=== PATIENT | male | born 2000 | race Hispanic/Latino ===

== ENCOUNTER 2023-02-23 18:40 | Emergency (ER) | payer SELFPAY ==
[2023-02-23] VITALS (14 sets, daily range): BP systolic 120–175; BP diastolic 57–87; PULSE 71–91; RESP 16–18; TEMP 36.3–36.6; O2SAT 98–100; BMI 56.7
[2023-02-23 20:14] LABS: Add Manual Diff / Slide Review NO; Basophils Absolute Auto 100 /uL (0-100); Basophils Percent Auto 0.8 % (0-2); Eosinophils Absolute Auto 100 /uL (0-450); Eosinophils Percent Auto 0.6 % (2-4); Hematocrit 41.8 % (41-53); Hemoglobin 14.1 g/dL (13.5-17.5); Lymphocytes Absolute Auto 2900 /uL (1100-4500); Mean Corpuscular HGB Conc 33.8 % (30-36); Mean Corpuscular Hemoglobin 26.7 PG (26-34); Monocytes Absolute Auto 700 /uL (0-900); Monocytes Percent Auto 5.7 % (3-14); Neutrophils Absolute Auto 8400 /uL (1500-7000); Neutrophils Percent Auto 68.9 % (50-75); Platelet Count 236 X10^3/uL (150-400); Red Blood Cell Count 5.28 X10^6/uL (4.5-5.9); Red Cell Distribution Width 13.8 % (11.6-14.8); White Blood Cell Count 12.2 X10^3/uL (4.5-11.0)
[2023-02-23 20:27] LABS: Alanine Aminotransferase 45 IU/L (<50); Albumin 4.3 g/dL (3.5-5.0); Albumin Globulin Ratio 1.2 (1.0-2.8); Alkaline Phosphatase 99 U/L (38-126); Aspartate Aminotransferase 36 IU/L (17-59); BUN Creatinine Ratio 23.3 (6-22); Bilirubin Total 0.7 mg/dL (0.2-1.3); Blood Urea Nitrogen 14 mg/dL (9-20); Calcium 8.8 mg/dL (8.4-10.2); Carbon Dioxide 29 mmol/L (22-32); Chloride 102 mmol/L (98-107); Estimated Glomerular Filt Rate > 60 mL/min (>60); Globulin 3.5 g/dL (1.7-4.1); Glucose 93 mg/dL (70-100); HEMOLYSIS 18 (0-50); Lipase 42 U/L (23-300); Potassium 3.6 mmol/L (3.4-5.1); Sodium 141 mmol/L (137-145); Total Protein 7.8 g/dL (6.3-8.2)
[2023-02-23] MEDS: SODIUM CHLORIDE 0.9% 1,000 ML 1000 ML IV (21:43)
--- NOTE | 2023-02-23 22:01 | ED.GENADULT ---
HPI - General Adult General Chief complaint: Dizziness Stated complaint: weakness/dizzy Time Seen by Provider: 02/23/23 18:49 Source: patient Mode of arrival: Ambulatory History of Present Illness HPI narrative: 22-year-old gentleman who presents complaining that he is weak and dizzy for a week. Was seen by urgent care and recommended that he come to the emergency department for further evaluation. Has been fasting in an attempt to lose weight. He currently does not have a physician. He is not reporting fevers, headaches, palpitations, chest pain. Related Data Home Medications Medication Instructions Recorded Confirmed No Known Home Medications 02/23/23 02/23/23 Allergies Allergy/AdvReac Type Severity Reaction Status Date / Time No Known Drug Allergies Allergy Verified 02/23/23 18:44 Review of Systems Review of Systems Narrative: Pertinent positive and negative findings as per HPI Patient History Medical History (Updated 02/23/23 @ 22:25 by Carole Reynolds MD) BMI greater than 30 Social History Smoking Status: Never smoker Smoking Status: Never smoker Substance Use Type: does not use Exam Initial Vital Signs Initial Vital Signs: Vital Signs Temperature 97.3 F L 02/23/23 18:44 Pulse Rate 90 02/23/23 18:44 Respiratory Rate 18 02/23/23 18:44 Blood Pressure 165/87 H 02/23/23 18:44 Pulse Oximetry 99 02/23/23 18:44 Oxygen Delivery Method Room Air 02/23/23 18:44 General: Healthy appearing, in no acute distress. BMI of 56.7. Able to give a complete and coherent history. HEENT: Moist mucous membranes, normal sclera with reactive pupils, Respiratory: Lungs are clear to auscultation, no wheezing no rales no rhonchi. Full and symmetrical air movement Cardiac: Regular rate and rhythm no murmurs no bruits Abdomen: Soft, nontender, good bowel tones, no flank pain Skin: Warm and dry, no rashes Neurologic: Grossly neurologically intact with no obvious asymmetries or abnormalities Extremities: No trauma, well perfused Psych: Cooperative, appropriate insight and affect Course Orders Ordered: ED Orders 02/23/23 19:19 EKG-12 Lead Stat 02/23/23 19:50 Complete Blood Count AUTO DIFF Stat Comprehensive Metabolic Panel Stat Lipase Stat Sodium Chloride (Normal Saline 0.9%) 1,000 mls @ 1,000 mls/hr IV BOLUS ONE Stop: 02/23/23 22:36 Last Admin: 02/23/23 21:43 Dose: 1,000 mls/hr Documented By: [facility] Ondansetron HCl (Ondansetron 4 Mg Odt) 4 mg PO NOW PRN PRN Reason: Nausea And Vomiting Ondansetron HCl (Ondansetron 4 Mg/2 Ml Inj) 4 mg IV NOW PRN PRN Reason: Nausea And Vomiting Vital Signs Vital signs: Vital Signs - 8 hr 02/23/23 18:44 02/23/23 19:40 02/23/23 19:42 Temperature 97.3 F L 97.9 F Pulse Rate 90 85 91 H Respiratory Rate 18 Blood Pressure 165/87 H 175/84 H Pulse Oximetry 99 98 99 Oxygen Delivery Method Room Air Room Air 02/23/23 19:44 02/23/23 19:44 02/23/23 20:00 Temperature Pulse Rate 86 83 Respiratory Rate Blood Pressure 154/78 H Pulse Oximetry 98 98 Oxygen Delivery Method 02/23/23 20:30 02/23/23 20:30 Temperature Pulse Rate 83 Respiratory Rate Blood Pressure 139/69 Pulse Oximetry 99 Oxygen Delivery Method Medical Decision Making Lab Data 02/23/23 19:50 02/23/23 19:50 Labs: Lab Results 02/23/23 02/23/23 Range/Units 19:50 19:50 WBC 12.2 H (4.5-11.0) X10^3/uL RBC 5.28 (4.5-5.9) X10^6/uL Hgb 14.1 (13.5-17.5) g/dL Hct 41.8 (41-53) % MCV 79.0 L (80-100) fL MCH 26.7 (26-34) PG MCHC 33.8 (30-36) % RDW 13.8 (11.6-14.8) % Plt Count 236 (150-400) X10^3/uL Neut % (Auto) 68.9 (50-75) % Lymph % (Auto) 24.0 L (25-40) % [place] % (Auto) 5.7 (3-14) % Eos % (Auto) 0.6 L (2-4) % Baso % (Auto) 0.8 (0-2) % Neut # (Auto) 8400 H (9744-1934) /uL Lymph # (Auto) 2900 (4576-0031) /uL [place] # (Auto) 700 (0-900) /uL Eos # (Auto) 100 (0-450) /uL Baso # (Auto) 100 (0-100) /uL Sodium 141 (137-145) mmol/L Potassium 3.6 (3.4-5.1) mmol/L Chloride 102 (98-107) mmol/L Carbon Dioxide 29 (22-32) mmol/L BUN 14 (9-20) mg/dL Creatinine 0.60 L (0.66-1.25) mg/dL Estimated GFR > 60 (>60) mL/min BUN/Creatinine Ratio 23.3 H (6-22) Glucose 93 (70-100) mg/dL Calcium 8.8 (8.4-10.2) mg/dL Total Bilirubin 0.7 (0.2-1.3) mg/dL AST 36 (17-59) IU/L ALT 45 (<50) IU/L Alkaline Phosphatase 99 (38-126) U/L Total Protein 7.8 (6.3-8.2) g/dL Albumin 4.3 (3.5-5.0) g/dL Globulin 3.5 (1.7-4.1) g/dL Albumin/Globulin Ratio 1.2 (1.0-2.8) Lipase 42 (23-300) U/L Urine Dip Bedside Urine Glucose Negative Bedside Urine Bilirubin - Negative Bedside Urine Ketone - Negative Urine Specific [place] 1.025 Bedside Urine Occult Blood - Negative Bedside Urine pH 6.0 Bedside Urine Protein - Negative Bedside Urine Urobilinogen - Negative Bedside Urine Nitrite - Negative Bedside Urine Leukocytes - Negative Esterase Point of care testing: Urine Dip Bedside Urine Glucose Negative Bedside Urine Bilirubin - Negative Bedside Urine Ketone - Negative Urine Specific [place] 1.025 Bedside Urine Occult Blood - Negative Bedside Urine pH 6.0 Bedside Urine Protein - Negative Bedside Urine Urobilinogen - Negative Bedside Urine Nitrite - Negative Bedside Urine Leukocytes - Negative Esterase MDM Narrative Medical decision making narrative: CC: Weak and dizzy Complicating co-morbidities: Morbid obesity with recently started voluntary fasting Data collected from: patient, Social determinants of health that may influence the patients condition: No current medical insurance Differential considered: Dehydration, sepsis, calorie malnutrition Exam documented above, pertinent findings include: Benign exam Lab Test results independently reviewed as above. Pertinent findings: CBC has a mild leukocytosis at 12.2 Metabolic panel is unremarkable with normal creatinine Hemoglobin A1c is 5.6 Independently reviewed EKG sinus rhythm at a rate of 90 with no acute ischemic changes Discussion: 22-year-old gentleman who wants to improve his overall health and has been fasting. Today was increasingly weak and dizzy. Feels significantly better after a L of fluid. Labs are reassuring. We talked about healthy choices for weight loss and making sure that your body's fueled enough that you can actually make sure that you are burning fat for weight loss. At this point there is no evidence of bacterial illness, cardiac issues, acute renal failure, electrolyte abnormalities or diabetes. Reassurance is given suggest an some reading materials listed below. He is safe for discharge Discharge Plan Departure Patient Disposition: Home Clinical Impression: Dizziness, BMI greater than 30 Activity Restrictions/Additional Instructions: Thank you for coming in today I appreciate your efforts with weight loss. I think that this is a very reasonable goal and will help you live a healthier happier and longer life. However, it does need to be done in a way that you are not always feeling weak and dizzy. Your workup today was very reassuring, there is no evidence of diabetes, electrolyte abnormalities, kidney problems, infection or heart problems If you would like to read more about intermittent fasting there is a book called Fast Feast Repeat by Dulce Ruiz that may be very helpful. If you find that you are getting worse or develop any new symptoms, please feel free to return to the emergency department for further evaluation. Prescriptions: No Action No Known Home Medications Referrals: Rosita Riley PA-C [Primary Care Provider] - Stand Alone Forms: Patient Portal/API
== END 2023-02-23 22:40 | disposition home or self-care (01) ==
PROVIDERS: Emergency Provider Emergency Medicine; PCP Physician Assistant
DX: R42 Dizziness and giddiness (principal); R53.1 Weakness; R10.9 Unspecified abdominal pain; Z68.30 Body mass index [BMI] 30.0-30.9, adult
CPT/HCPCS: 36415; 80053; 81003; 83690; 85025; 93005; 93010; 96360; 99284

== ENCOUNTER → 2023-09-29 08:53 | Outpatient (CLI) | payer SELFPAY ==
[2023-09-29 19:01] LABS: Alanine Aminotransferase 47 IU/L (<50); Albumin Globulin Ratio 1.1 (1.0-2.8); Alkaline Phosphatase 83 U/L (38-126); Aspartate Aminotransferase 42 IU/L (17-59); BUN Creatinine Ratio 16.9 (6-22); Bilirubin Total 0.7 mg/dL (0.2-1.3); Blood Urea Nitrogen 11 mg/dL (9-20); Calcium 8.3 mg/dL (8.4-10.2); Carbon Dioxide 29 mmol/L (22-32); Chloride 102 mmol/L (98-107); Cholesterol 87 mg/dL (140-199); Estimated Glomerular Filt Rate > 60 mL/min (>60); Globulin 3.6 g/dL (1.7-4.1); Glucose 125 mg/dL (70-100); HDL Cholesterol 19 mg/dL (40-60); HEMOLYSIS < 15 (0-50); LDL Cholesterol Calculated 42 mg/dL (<100); Potassium 3.5 mmol/L (3.4-5.1); Sodium 138 mmol/L (137-145); Total Protein 7.6 g/dL (6.3-8.2); Triglycerides 131 mg/dL (35-150)
[2023-09-29 19:04] LABS: Add Manual Diff / Slide Review NO; Basophils Absolute Auto 0 /uL (0-100); Basophils Percent Auto 0.7 % (0-2); Eosinophils Absolute Auto 100 /uL (0-450); Eosinophils Percent Auto 1.8 % (2-4); Hemoglobin 14.2 g/dL (13.5-17.5); Lymphocytes Absolute Auto 1800 /uL (1100-4500); Lymphocytes Percent Auto 38.7 % (25-40); Mean Corpuscular HGB Conc 33.9 % (30-36); Mean Corpuscular Hemoglobin 27.1 PG (26-34); Mean Corpuscular Volume 79.9 fL (80-100); Monocytes Absolute Auto 300 /uL (0-900); Monocytes Percent Auto 6.2 % (3-14); Neutrophils Absolute Auto 2500 /uL (1500-7000); Neutrophils Percent Auto 52.6 % (50-75); Platelet Count 183 X10^3/uL (150-400); Red Blood Cell Count 5.25 X10^6/uL (4.5-5.9); Red Cell Distribution Width 14.1 % (11.6-14.8); White Blood Cell Count 4.7 X10^3/uL (4.5-11.0)
[2023-09-29 19:32] LABS: Cortisol Random 9.18 ug/dL
[2023-09-29 19:33] LABS: TSH w/ Reflex to FT4 4.19 uIU/mL (0.47-4.68)
[2023-09-29 19:36] LABS: Ferritin 174 ng/mL (18-464)
[2023-09-29 20:07] LABS: Folate 14.9 ng/mL (2.76-20.0); Vitamin B12 Reflex MMA if <400 651 pg/mL (239-931)
== END ==
PROVIDERS: PCP Physician Assistant; Visit Provider Family Medicine
DX: Z13.6 Encounter for screening for cardiovascular disorders (principal); R00.0 Tachycardia, unspecified; E66.01 Morbid (severe) obesity due to excess calories; Z68.43 Body mass index [BMI] 50.0-59.9, adult; Z71.3 Dietary counseling and surveillance; R68.89 Other general symptoms and signs
CPT/HCPCS: 80053; 80061; 82533; 82607; 82728; 82746; 84443; 85025

== ENCOUNTER 2025-07-23 20:38 | Emergency (ER) | payer SELFPAY ==
[2025-07-23] VITALS (7 sets, daily range): BP systolic 124–182; BP diastolic 62–103; PULSE 101–110; RESP 18–26; TEMP 36.4; O2SAT 95–98; BMI 60.6
--- NOTE | 2025-07-23 20:51 | DI.RAD.S_ITS ---
PROCEDURE: XR CHEST 1V INDICATIONS: Chest Pain TECHNIQUE: One view of the chest was acquired. COMPARISON: None. FINDINGS: Surgical changes and devices: None. Lungs and pleura: Lungs are clear. No pleural effusions or pneumothorax. Mediastinum: Mediastinal contours appear normal. Heart size is normal. Bones and chest wall: No suspicious bony lesions. Overlying soft tissues appear unremarkable. IMPRESSION: No acute pulmonary process. Dictated by: Simona Collins M.D. on 07/23/2025 at 21:17 Approved by: Simona Collins M.D. on 07/23/2025 at 21:17
--- OUTSIDE RECORDS SUMMARY | 2025-07-23 20:51 | XMS_ITS | Clinical Summary ---
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 Role Phone Pcp, None Selected Primary Care Provider Unavail able Allergies Active Allergy Reactions Criticality Noted Date Comments No Known Allergies 08/12/2016 Immunizations Immunization Administration Dates Next Due Influenza Quadrivalent, Contains Preservative Family History Medical History Relation Comments Diabetes Other Relation Status Comments Other Social History Tobacco Use Types Packs/Day Years Used Date Smoking Tobacco: Never Alcohol Use Standard Drinks/Week Comments No 0 (1 standard drink = 0.6 oz pur e alcohol) Sex and Gender Information Value Date Recorded Sex Assigned at Not on file Legal Sex Male 7:42 PM PDT Gender Identity Not on file Sexual Orientation Not on file Last Filed Vital Signs Vital Sign Reading Time Taken Comments Blood Pressure 110/86 04/07/2016 1:54 PM PDT Pulse 78 04/07/2016 1:54 PM PDT Temperature 35.7 C (96.3 F) 11/01/2015 5:00 PM PDT Respiratory Rate - - Oxygen Saturation - - Inhaled Oxygen Concentration - - Weight 128 kg (283 lb) 04/07/2016 1:54 PM PDT Height 168.9 cm (5' 6.5) 04/07/2016 1:54 PM PDT Body Mass Index 44.99 04/07/2016 1:54 PM PDT Plan of Treatment Health Maintenance Due Date Last Done Comments MMR Vaccines (1 of 1 - Stand leonora series) 12/19/1999 Depression Screening (PHQ-2) 2010 Varicella Vaccines (1 of 2 - 13+ 2-dose series) 12/19/2011 HPV Vaccines (1 - Male 3-dos e series) 2013 DTaP,Tdap,and Td Vaccines (1 - Tdap) 2017 Hepatitis B Vaccines (1 of 3 - 19+ 3-dose series) 2017 COVID-19 Vaccine (2024-2 6 season) 2025 Influenza Vaccine (#1) 2025 05/21/2015 RSV Patients Over 60 years O R qualifying ( Patients) (1 - 1-dose 75+ series) 2073 HM Pneumococcal Combined Age 0-49 Aged Out No longer eligible based on patient's age to complete this topic Hepatitis A Vaccines Aged Out No long er eligible based on patient's age to complete this topic IPV Vaccines Aged Out No longer eligi ble based on patient's age to complete this topic 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
--- NOTE | 2025-07-23 20:57 | EKG_ITS ---
[address] [address] Test Date: 2025-07-23 Pat Name: Devonte Oconnor Department: Room: Gender: Male Container Filler: MARIAH : 2000 Requested By: Order Number: [id number] Reading MD: Jerrell Fields Measurements Intervals [place] Rate: 105 P: 53 MA: 142 QRS: 52 QRSD: 90 T: 36 QT: 334 QTc: 441 Interpretive Statements Sinus tachycardia Electronically Signed On 07-24-2025 10:42:44 PST by Jerrell Fields
[2025-07-23 21:38] LABS: Add Manual Diff / Slide Review NO; Hematocrit 41.0 % (41-53); Hemoglobin 13.8 g/dL (13.5-17.5); Lymphocytes Absolute Auto 2800 /uL (1100-4500); Mean Corpuscular HGB Conc 33.6 % (30-36); Mean Corpuscular Hemoglobin 26.5 PG (26-34); Mean Corpuscular Volume 78.8 fL (80-100); Platelet Count 227 X10^3/uL (150-400)
--- NOTE | 2025-07-23 21:40 | ED_ITS ---
HPI - Chest Pain General Chief Complaint: Chest Pain Stated Complaint: Heart issues, ems ref? Time Seen by Provider: 07/23/25 20:53 Source: patient Mode of arrival: Ambulatory History of Present Illness HPI narrative: Patient is a 24-year-old man presented by POV for dizziness, headache, headache and racing heart. Past medical history includes morbid obesity, hypertension, hyperlipidemia, no diabetes. Patient states that he was in his usual state of health when he woke up this morning with dizziness. 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 He came home and slept until 2pm. When he woke up, dizziness persisted however he also noted that his heart was racing. He denies any chest pain, dyspnea, diaphoresis. No nausea, vomiting, abdominal pain, diarrhea. Patient states that he had similar symptom a long time ago. Review of EMR on 01/2023 reveals that patient presented we can disease secondary to voluntary fasting. Related Data Home Medications ?Medication ?Instructions ?Recorded ?Confirmed No Known Home Medications 01/03/2512/25 Allergies Allergy/AdvReac Type Severity Reaction Status Date / Time No Known Drug Allergies Allergy Verified 07/23/25 20:42 Review of Systems Review of Systems Narrative: See HPI. Patient History Medical History (Updated 07/24/25 @ 00:17 by Coretta Guerrero MD) BMI greater than 30 Social History Smoking Status: Never smoker Smoking Status: Never smoker Exam Narrative Exam Narrative: Vitals:? Afebrile, hypertensive, tachycardic, tachypneic all other vitals within normal range. Gen:? Well-developed, well-nourished, no acute distress Cards:? Tachycardic, no murmurs, rubs, gallops Pulm:? No increased work of breathing, distant lung sounds Abd:? Soft, nondistended, nontender Ext:? No peripheral edema in bilateral lower extremity Neuro:? A&O x4, cranial nerves grossly intact, in all 4 extremities spontaneously Psych:? Appropriate Initial Vital Signs Initial Vital Signs: Vital Signs Temperature 97.5 F L 07/23/25 20:42 Pulse Rate 103 H 07/23/25 20:42 Respiratory Rate 20 07/23/25 20:42 Blood Pressure 182/92 H 07/23/25 20:42 Pulse Oximetry 96 07/23/25 20:42 Oxygen Delivery Method Room Air 07/23/25 20:42 Course Orders Ordered: ED Orders 07/23/25 23:05 Covid-19 + FLU A/B + RSV - PCR Stat Lactate (Lactic Acid) Stat 07/23/25 23:25 urine tox [Urine Drug Screen, Rapid] Stat Discontinued Medications Aspirin (Aspirin 81 Mg Chew Tab) 324 mg PO NOW ONE Stop: 07/23/25 20:51 Last Admin: 07/24/25 00:15 Dose: Not Given Documented By: AI Magnesium Chloride (Magnesium Chloride 64 Mg Tablet) 128 mg PO NOW ONE Stop: 07/23/25 22:36 Last Admin: 07/23/25 22:50 Dose: Not Given Documented By: AB Vital Signs Vital signs: Vital Signs - 8 hr 07/23/25 23:00 07/23/25 23:00 07/23/25 23:32 Pulse Rate 101 H 104 H Respiratory Rate 26 H 26 H Blood Pressure 124/73 Pulse Oximetry 95 95 07/23/25 23:34 07/23/25 23:34 07/24/25 00:00 Pulse Rate 102 H Respiratory Rate 23 Blood Pressure 129/62 122/56 L Pulse Oximetry 96 07/24/25 00:00 Pulse Rate 98 H Respiratory Rate 20 Blood Pressure Pulse Oximetry 97 MDM - Chest Pain Lab Data 07/23/25 21:30 07/23/25 21:30 Labs: Lab Results 07/23/25 07/23/25 07/23/25 Range/Units 21:30 23:05 23:25 WBC 11.7 H (4.5-11.0) X10^3/uL RBC 5.20 (4.5-5.9) X10^6/uL Hgb 13.8 (13.5-17.5) g/dL Hct 41.0 (41-53) % MCV 78.8 L (80-100) fL MCH 26.5 (26-34) PG MCHC 33.6 (30-36) % RDW 13.9 (11.6-14.8) % Plt Count 227 (150-400) X10^3/uL Neut % (Auto) 69.3 (50-75) % Lymph % (Auto) 23.7 L (25-40) % [place] % (Auto) 4.8 (3-14) % Eos % (Auto) 1.2 L (2-4) % Baso % (Auto) 1.0 (0-2) % Neut # (Auto) 8100 H (3969-2674) /uL Lymph # (Auto) 2800 (6583-8294) /uL [place] # (Auto) 600 (0-900) /uL Eos # (Auto) 100 (0-450) /uL Baso # (Auto) 100 (0-100) /uL PT 11.5 (9.4-12.5) SECONDS INR 1.0 (0.9-1.3) APTT 30 (25.1-36.5) SECONDS D-Dimer < 215 (<500) ng/ml Sodium 136 L (137-145) mmol/L Potassium 3.8 (3.4-5.1) mmol/L Chloride 101 (98-107) mmol/L Carbon Dioxide 26 (22-32) mmol/L BUN 13 (9-20) mg/dL Creatinine 0.64 L (0.66-1.25) mg/dL Estimated GFR > 60 (>60) mL/min BUN/Creatinine Ratio 20.3 (6-22) Glucose 217 H (70-99) mg/dL Lactate 1.1 (0.7-2.1) mmol/L Calcium 8.5 (8.4-10.2) mg/dL Magnesium 1.5 L (1.6-2.3) mg/dL Total Bilirubin 0.3 (0.2-1.3) mg/dL AST 33 (17-59) IU/L ALT 51 H (<50) IU/L Alkaline Phosphatase 109 (38-126) U/L Total Creatine Kinase 125 (55-170) U/L Troponin I < 0.012 (0.01-0.034) ng/mL NT-Pro-B Natriuret Pep < 20 (<125) pg/mL Total Protein 7.6 (6.3-8.2) g/dL Albumin 4.3 (3.5-5.0) g/dL Globulin 3.3 (1.7-4.1) g/dL Albumin/Globulin Ratio 1.3 (1.0-2.8) Lipase 48 (23-300) U/L U Opiates 300ng/mL cut Negative (Negative) Ur Oxycodone Screen Negative (Negative) Urine Methadone Screen Negative (Negative) Ur Barbiturates Screen Negative (Negative) U Tricyclic Antidepress Negative (Negative) Ur Phencyclidine Scrn Negative (Negative) Ur Amphetamines Screen Negative (Negative) U Methamphetamines Scrn Negative (Negative) Ur MDMA Scrn (Ecstasy) Negative (Negative) U Benzodiazepines Scrn Negative (Negative) Urine Cocaine Screen Negative (Negative) U Marijuana (THC) Screen Negative (Negative) Urine pH Normal (Normal) Urine Specific [place] Normal (Normal) Ur Creatinine Normal (Normal) SARS-CoV-2 (PCR) Negative (Negative) Influenza A (RT-PCR) Flu a negative (NEGATIVE) Influenza B (RT-PCR) Flu b negative (NEGATIVE) RSV (PCR) Negative (Negative) Imaging Data Chest x-ray: Radiologist's Impression: PROCEDURE: XR CHEST 1V INDICATIONS: Chest Pain TECHNIQUE: One view of the chest was acquired. COMPARISON: None. FINDINGS: Surgical changes and devices: None. Lungs and pleura: Lungs are clear. No pleural effusions or pneumothorax. Mediastinum: Mediastinal contours appear normal. Heart size is normal. Bones and chest wall: No suspicious bony lesions. Overlying soft tissues appear unremarkable. IMPRESSION: No acute pulmonary process. MDM Narrative Medical decision making narrative: Patient is a 24-year-old morbidly obese, with a history of hypertension, hyperlipidemia, presenting with dizziness and tachycardia. EMR Review: Reviewed patient's previous ER encounter on 02/23/2023. Differential diagnosis: ACS, pulmonary embolism, upper respiratory infection to include COVID, influenza, RSV, dehydration, other. Labs: Mild leukocytosis (WBC 11.7), no left shift, no anemia, normal platelet. Coags normal. CMP largely normal, aside from glucose 217. Lactate 1.1. Magnesium 1.5. LFTs unremarkable. Lipase 48. Images: Chest x-ray normal. EK EKG with sinus tachycardia, HR 105, MD 142, QRS 90, QTC 441, no left axis deviation no ectopy, no evidence of ischemia. Consults: None. ED Course: Patient arrived to the ED hypertensive, tachycardic, tachypneic, on my evaluation did not appeared to have systemic infection. D-dimer was negative. Viral swabs were negative. On discharge, life-threatening condition such as OK and PE were ruled out. Patient was discharged with recommendation to follow up with his primary care physician. Coretta Guerrero MD Emergency Medicine 23:34 07/23/25 Discharge Plan Departure Patient Disposition: Home Clinical Impression: Dizziness Activity Restrictions/Additional Instructions: You were seen in the emergency department for dizziness. In the ER: -- Your workup to include chest x-ray, EKG, cardiac enzymes enzymes was not consistent with a heart attack -- D-dimer, a measure for blood clots in your lung, was negative. -- Viral swabs were negative for influenza, RSV, and COVID. --your labs to include blood count, and electrolytes were mostly normal aside from low magnesium. You were given magnesium to replace this. Recommend: -- Follow up with your primary care physician on [facility] Prescriptions: No Action No Known Home Medications Referrals: Rosita Riley PA-C [Primary Care Provider, Medical] Stand Alone Forms: Patient Portal/API
[2025-07-23 21:51] LABS: INR 1.0 (0.9-1.3); Prothrombin Time 11.5 SECONDS (9.4-12.5)
[2025-07-23 21:54] LABS: PTT Partial Thromboplastin Tim 30 SECONDS (25.1-36.5)
[2025-07-23 21:55] LABS: Alanine Aminotransferase 51 IU/L (<50); Albumin 4.3 g/dL (3.5-5.0); Albumin Globulin Ratio 1.3 (1.0-2.8); Alkaline Phosphatase 109 U/L (38-126); Blood Urea Nitrogen 13 mg/dL (9-20); Calcium 8.5 mg/dL (8.4-10.2); Carbon Dioxide 26 mmol/L (22-32); Chloride 101 mmol/L (98-107); Creatine Kinase 125 U/L (55-170); Estimated Glomerular Filt Rate > 60 mL/min (>60); Globulin 3.3 g/dL (1.7-4.1); Glucose 217 mg/dL (70-99); HEMOLYSIS < 15 (0-50); Lipase 48 U/L (23-300); Magnesium 1.5 mg/dL (1.6-2.3); Potassium 3.8 mmol/L (3.4-5.1); Sodium 136 mmol/L (137-145); Total Protein 7.6 g/dL (6.3-8.2)
[2025-07-23 22:07] LABS: NT-proBNP (BNP-Adult 18+) < 20 pg/mL (<125); Troponin I < 0.012 ng/mL (0.01-0.034)
[2025-07-23 23:21] LABS: Lactate (Lactic Acid) 1.1 mmol/L (0.7-2.1)
[2025-07-23 23:39] LABS: UR Morphine/Opiate cutoff 300 Negative (Negative); Ur Specific Gravity Normal (Normal); Urine MDMA Negative (Negative); Urine Methamphetamines Negative (Negative); Urine Tetrahydrocannabinol Negative (Negative); Urine Tricyclic Antidepressant Negative (Negative)
[2025-07-23 23:47] LABS: Influenza A - CEPHEID Flu A NEGATIVE (NEGATIVE); Influenza B - CEPHEID Flu B NEGATIVE (NEGATIVE)
[2025-07-23 23:51] LABS: COVID-19 CEPHEID 4-PLEX PCR Negative (Negative)
[2025-07-24] VITALS: BP 122/56; PULSE 98; RESP 20; O2SAT 97
== END 2025-07-24 00:27 | disposition home or self-care (01) ==
PROVIDERS: Emergency Medicine; Emergency Provider Student in an Organized Health Care Education/Training Program; PCP Physician Assistant
DX: R42 Dizziness and giddiness (principal); R51.9 Headache, unspecified; R00.0 Tachycardia, unspecified; I10 Essential (primary) hypertension
CPT/HCPCS: 36415; 71045; 80053; 80305; 82550; 83605; 83690; 83735; 83880; 84484; 85025; 85379; 85610; 85730; 87637; 93005; 99283; 99284